=== PATIENT | female | born 1990 | race Caucasian/White ===

== ENCOUNTER → 2017-08-18 | Outpatient (CLI) | payer OTHER ==
[2014-05-14 16:26] VITALS: BP 169/108
[~2017-08-18] MED LIST: LEVORA-28 30 MC1 TA1 PO
== END ==
LOC: LAB 17:10
DX: Z01.419 Encounter for gynecological examination (general) (routine) without abnormal findings (principal); Z72.51 High risk heterosexual behavior

== ENCOUNTER → 2017-08-24 | Outpatient (CLI) | payer OTHER ==
[2014-05-14 16:26] VITALS: BP 169/108
== END ==
LOC: RAD 16:00
DX: N93.0 Postcoital and contact bleeding (principal); Z72.51 High risk heterosexual behavior

== ENCOUNTER → 2018-01-03 | Outpatient (CLI) | payer OTHER ==
[2014-05-14 16:26] VITALS: BP 169/108
== END ==
LOC: LAB 16:46
DX: Z72.51 High risk heterosexual behavior (principal)

== ENCOUNTER → 2018-09-26 | Outpatient (CLI) | payer BC ==
[2014-05-14 16:26] VITALS: BP 169/108
[2018-09-26 16:54] LABS: HEMATOCRIT 38.8 % (37.0-47.0); HEMOGLOBIN 12.3 g/dL (12.5-16.0); MEAN PLATELET VOLUME 9.5 fl (7.4-10.4); RED BLOOD COUNT 4.27 M/mm3 (4.10-5.30); RED CELL DISTRIBUTION WIDTH 12.7 % (11.5-14.5); WHITE BLOOD COUNT 4.7 K/mm3 (4.8-10.8)
[2018-09-26 19:21] LABS: ALBUMIN 4.1 g/dL (3.5-5.0); CALCIUM 9.3 mg/dL (8.4-10.2); POTASSIUM 4.1 mmol/L (3.6-5.0); TOTAL BILIRUBIN 0.7 mg/dL (0.2-1.3)
== END ==
LOC: LAB 16:29
PROVIDERS: Family Medicine
DX: F41.1 Generalized anxiety disorder (principal); I10 Essential (primary) hypertension

== ENCOUNTER → 2018-10-02 | Outpatient (CLI) | payer BC ==
[2014-05-14 16:26] VITALS: BP 169/108
== END ==
LOC: RAD 12:00
DX: G93.89 Other specified disorders of brain (principal)

== ENCOUNTER → 2020-07-07 | Outpatient (CLI) | payer OTHER ==
[2014-05-14 16:26] VITALS: BP 169/108
[2020-07-07 17:54] LABS: CLUE CELLS NOT OBSERVED (Not Observd)
== END ==
LOC: LAB 17:34
PROVIDERS: Family Medicine
DX: Z11.3 Encounter for screening for infections with a predominantly sexual mode of transmission (principal)
CPT/HCPCS: Q0111

== ENCOUNTER → 2021-04-06 | Outpatient (CLI) | payer OTHER ==
[2021-04-06 17:09] LABS: HEMATOCRIT 38.7 % (37.0-47.0); HEMOGLOBIN 12.8 g/dL (12.5-16.0); MEAN CELL VOLUME 88 fl (78-100); MEAN CORPUSCULAR HEMOGLOBIN 29 pg (27-31); MEAN CORPUSCULAR HGB CONC 33 g/dL (33-37); MEAN PLATELET VOLUME 9.4 fl (7.4-10.4); PLATELET COUNT 235 K/mm3 (130-400); RED CELL DISTRIBUTION WIDTH 12.4 % (11.5-14.5); WHITE BLOOD COUNT 5.8 K/mm3 (4.8-10.8)
[2021-04-06 17:27] LABS: ALBUMIN 4.1 g/dL (3.5-5.0); POTASSIUM 4.2 mmol/L (3.5-5.1)
[2021-04-06 17:28] LABS: CALCIUM 9.7 mg/dL (8.3-10.5)
[2021-04-06 17:31] LABS: TOTAL BILIRUBIN 0.6 mg/dL (0.2-1.2)
== END ==
LOC: LAB 16:47
PROVIDERS: Family Medicine
DX: I10 Essential (primary) hypertension (principal); R10.9 Unspecified abdominal pain; R01.1 Cardiac murmur, unspecified

== ENCOUNTER → 2021-04-13 | Outpatient (CLI) | payer OTHER | LOC: RAD 11:00 → VAS 11:00 | DX: I10 Essential (primary) hypertension (principal); R01.1 Cardiac murmur, unspecified; R51.9 Headache, unspecified ==

== ENCOUNTER → 2021-10-26 | Outpatient (CLI) | payer OTHER ==
[2021-10-26 18:09] LABS: BASO # 0.02 K/mm3 (0.02-0.10); EOS # 0.13 K/mm3 (0.04-0.40); HEMATOCRIT 37.8 % (37.0-47.0); HEMOGLOBIN 12.1 g/dL (12.5-16.0); LYMPH# 1.71 K/mm3 (1.50-4.00); MEAN CELL VOLUME 91 fl (78-100); MEAN CORPUSCULAR HEMOGLOBIN 29 pg (27-31); MEAN CORPUSCULAR HGB CONC 32 g/dL (33-37); MEAN PLATELET VOLUME 9.2 fl (7.4-10.4); MONO # 0.53 K/mm3 (0.20-0.80); PLATELET COUNT 243 K/mm3 (130-400); RED BLOOD COUNT 4.15 M/mm3 (4.10-5.30); WHITE BLOOD COUNT 6.6 K/mm3 (4.8-10.8)
[2021-10-26 18:19] LABS: ALBUMIN 4.2 g/dL (3.5-5.0); POTASSIUM 4.8 mmol/L (3.5-5.1)
[2021-10-26 18:20] LABS: CALCIUM 9.7 mg/dL (8.3-10.5)
[2021-10-26 18:24] LABS: TOTAL BILIRUBIN 0.8 mg/dL (0.2-1.2)
== END ==
LOC: LAB 17:58
PROVIDERS: Family Medicine
DX: Z00.00 Encounter for general adult medical examination without abnormal findings (principal); I10 Essential (primary) hypertension; R01.1 Cardiac murmur, unspecified; R51.9 Headache, unspecified; F41.1 Generalized anxiety disorder; E66.9 Obesity, unspecified; E78.5 Hyperlipidemia, unspecified